=== PATIENT | male | born 1950 | race African-American/Black ===

== ENCOUNTER 2016-04-19 11:41 | Inpatient (IN) | payer MEDICARE, MEDICAID ==
[~2016-04-19] VITALS: Ht 170.2 cm; Wt 102.1 kg
[2016-04-19 13:07] LABS: BASOPHILS % 0.4 % (0.0-2.0); DIFFERENTIAL COMMENT 0; EOSINOPHILS % 0.1 % (0.0-5.0); HEMATOCRIT. 47.6 % (42.0-52.0); HEMOGLOBIN. 15.7 g/dL (14.0-18.0); LYMPHOCYTES % 11.3 % (20.0-50.0); MEAN CORPUSCULAR HEMOGLOBIN 30.2 pg (28.0-32.0); MEAN CORPUSCULAR HGB CONC 32.9 g/dL (31.0-37.0); MEAN CORPUSCULAR VOLUME 91.8 fL (80.0-94.0); MEAN PLATELET VOLUME 11.7 fl (7.4-10.4); MONOCYTES % 9.4 % (2.0-8.0); NEUTROPHILS % 78.8 % (40.0-76.0); PLATELET 138 x1000/uL (130-400); RED BLOOD CELL COUNT 5.19 mill/uL (4.7-6.1); RED CELL DISTRIBUTION WIDTH 14.8 % (11.6-14.6); WHITE BLOOD COUNT 9.4 x1000/uL (4.5-11.0)
[2016-04-19 13:12] LABS: CHLORIDE 101 mEq/L (98-107); INDEX HEMOLYSI 1 (1-3); INDEX ICTERIC 1 (1-4); INDEX LIPEMIC 1 (1-3)
[2016-04-19 13:21] LABS: INR 1.2
[2016-04-19 13:22] LABS: ALANINE AMINOTRANSFERASE 28 IU/L (13-61); ALBUMIN 3.4 g/dL (3.4-5.0); ANION GAP 14; CALCIUM 8.7 mg/dL (8.5-10.1); CARBON DIOXIDE 25 mEq/L (21-32); CREATINE KINASE 861 IU/L (39-308); ETHANOL BLOOD < 10 mg/dL; NT PRO B-TYPE NATRIURETIC PEP 200 pg/mL (5-125); TROPONIN I 0.04 ng/mL (0.00-0.04); UREA NITROGEN BLOOD 28 mg/dL (7-21); eGFR > 60 mL/min (>60)
[2016-04-19 13:24] LABS: LACTIC ACID 3.1 mmol/L (0.4-2.0)
[2016-04-19 14:16] LABS: CLARITY URINE CLEAR (CLEAR); COLOR URINE YELLOW (YELLOW); GLUCOSE URINE NEGATIVE (NEGATIVE); KETONES URINE NEGATIVE (NEGATIVE); LEUKOCYTE ESTERASE URINE NEGATIVE (NEGATIVE); NITRITE URINE NEGATIVE (NEGATIVE); OCCULT BLOOD URINE NEGATIVE (NEGATIVE); PROTEIN URINE NEGATIVE (NEGATIVE); SPECIFIC GRAVITY URINE 1.025 (1.005-1.030); UROBILINOGEN URINE 0.2 E.U./dL (0.2-1.0)
[2016-04-19 14:39] LABS: *AMPHETAMINES SCREEN URINE NEGATIVE (NEGATIVE); *BARBITURATES SCREEN URINE NEGATIVE (NEGATIVE); *BENZODIAZEPINES SCREEN URINE NEGATIVE (NEGATIVE); *COCAINE SCREEN URINE NEGATIVE (NEGATIVE); CANNABINOID URINE SCREEN NEGATIVE (NEGATIVE); ECSTASY MDMA SCREEN URINE NEGATIVE (NEGATIVE); METHADONE URINE SCREEN NEGATIVE (NEGATIVE); OPIATES URINE SCREEN NEGATIVE (NEGATIVE); PHENCYCLIDINE URINE SCREEN NEGATIVE (NEGATIVE)
[2016-04-19] MEDS ORDERED: BISACODYL 5MG TABLET PO PRN (16:30)
[2016-04-19] MEDS ORDERED: LOSARTAN POTASSIUM 50 MG TABLET PO NR (19:15)
[2016-04-19 21:45] VITALS: BP 105/63
[2016-04-20] VITALS: BP 113/88
[2016-04-20] MEDS: GABAPENTIN 100MG CAPSULE PO SCH ×4 (00:55→21:13)
[2016-04-20] MEDS: ASPIRIN 81MG TABLET PO SCH ×2 (00:55→09:45)
[2016-04-20] MEDS: ENOXAPARIN 30MG/0.3ML SYR SUBCUT SCH ×3 (00:58→21:13)
[2016-04-20] MEDS ORDERED: ATOR10TA69 PO (02:48)
[2016-04-20] MEDS ORDERED: LISI40TA4 PO (02:48)
[2016-04-20] MEDS ORDERED: HYDR25TA PO (02:48)
[2016-04-20 05:58] VITALS: BP 108/69
[2016-04-20 08:00] VITALS: BP 107/65
[2016-04-20] MEDS ORDERED: INFLUENZA VIRUS VACCINE 0.5ML SYR IM ONE (09:00)
[2016-04-20] MEDS: LOSARTAN POTASSIUM 50 MG TABLET PO SCH ×2 (09:44→21:13)
[2016-04-20] MEDS: PNEUMOCOCCAL 23-VAL P-SAC VAC 0.5 ML IM ONE ×2 (09:48→11:54)
[2016-04-20] MEDS ORDERED: HYDROCODONE/ACETAMINOPHEN 5/325MG TABLET PO PRN (10:30)
[2016-04-20] MEDS: HYDROCODONE/ACETAMINOPHEN 5/325MG TABLET PO PRN ×2 (11:53→16:52)
[2016-04-20 12:00] VITALS: BP 97/56
[2016-04-20] MEDS ORDERED: PANTOPRAZOLE 40MG DR TABLET PO SCH (13:30)
[2016-04-20 16:00] VITALS: BP 104/76
[2016-04-20] MEDS: FAMOTIDINE 20MG TABLET PO SCH (16:49)
[2016-04-20 20:00] VITALS: BP 105/63
[2016-04-21] VITALS (7 sets, daily range): BP systolic 101–136; BP diastolic 67–89
[2016-04-21] MEDS: HYDROCODONE/ACETAMINOPHEN 5/325MG TABLET PO PRN ×3 (04:33→13:23)
[2016-04-21] MEDS: GABAPENTIN 100MG CAPSULE PO SCH ×2 (06:43→15:55)
[2016-04-21] MEDS: FAMOTIDINE 20MG TABLET PO SCH (08:52)
[2016-04-21] MEDS: LOSARTAN POTASSIUM 50 MG TABLET PO SCH (08:52)
[2016-04-21] MEDS: ASPIRIN 81MG TABLET PO SCH (08:52)
[2016-04-21] MEDS: ENOXAPARIN 30MG/0.3ML SYR SUBCUT SCH (08:53)
[2016-04-21] MEDS ORDERED: MORPHINE SULFATE 2 MG/ML CPJ (NOT FOR IM USE) IV PRN (12:30)
[2016-04-21] MEDS ORDERED: ATORVASTATIN CALCIUM 20MG TABLET PO SCH (21:00)
== END 2016-04-21 18:08 | disposition short-term general hospital (02) | DRG 552 ==
LOC: ER 12:08 → 6EST 14:49
PROVIDERS: ADMIT Internal Medicine; ATTEND Internal Medicine
DX: M48.06 Spinal stenosis, lumbar region (principal); E66.9 Obesity, unspecified; I10 Essential (primary) hypertension; M54.9 Dorsalgia, unspecified; G89.29 Other chronic pain; Z68.35 Body mass index [BMI] 35.0-35.9, adult
CPT/HCPCS: 36415; 70450; 71010; 72148; 80053; 80305; 81003; 82550; 83605; 83735; 83880; 84153; 84443; 84484; 85025; 85610; 87040; 90686; 90732; 93005; 93880; 97162; 99285; G0482; J1650; J2270